=== PATIENT | female | born 1985 | race Caucasian/White ===

== ENCOUNTER 2016-11-19 01:06 | Emergency (ER) | payer MEDICAID, OTHER ==
[~2016-11-19] VITALS: Ht 154.9 cm; Wt 54.5 kg
[~2016-11-19 01:06] MED LIST: CIP250 PO; DSS100 PO
[2016-11-19] MEDS ORDERED: LIB25 PO (01:24)
[2016-11-19 01:36] VITALS: BP 114/69
== END 2016-11-19 02:11 | disposition home or self-care (01) ==
LOC: EMS 01:07
DX: B86 Scabies (principal); F12.90 Cannabis use, unspecified, uncomplicated; F17.210 Nicotine dependence, cigarettes, uncomplicated
CPT/HCPCS: 99282